=== PATIENT | female | born 1990 | race Caucasian/White ===

== ENCOUNTER 2016-10-01 19:14 | Emergency (ER) | payer OTHER ==
[2016-10-01 19:49] LABS: BILIRUBIN,URINE NEGATIVE (NEGATIVE)
[2016-10-01 19:53] LABS: HCG UR QUAL NEGATIVE; UA CHARGE (STRIP ONLY) YES; UR CULTURE IF IND NOT INDICATED
--- NOTE | 2016-10-01 20:32 | ED Physician Documentation ---
PD HPI ABD PAIN - Stated complaint Stated Complaint: ABD PX - Chief complaint Chief Complaint: Abd Pain - History obtained from History obtained from: Patient - History of Present Illness Timing - onset: Other (25-year-old, 3 months after , no other abdominal surgeries. After eating Guacamole with cheese she developed upper abdominal pain which is now mostly gone but she has had some near syncopal episodes with which concern her more. There is no associated chest pain or shortness of breath.) Timing - details: Abrupt onset Quality: Cramping Review of Systems Constitutional: denies: Fever, Chills Cardiac: denies: Chest pain / pressure, Palpitations Respiratory: denies: Dyspnea, Cough GI: reports: Abdominal Pain (Gone). denies: Constipation, Hematemesis, Bloody / black stool : reports: Control. 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 : None HEENT: None Psych: None Musculoskeletal: None Derm: None - Past Surgical History Past Surgical History: No - Present Medications Home Medications: Ambulatory Orders Medication Instructions Recorded Confirmed Norgestimate-Ethinyl Estradiol 1 tab PO DAILY 01/13/15 01/13/15 [Ortho Tri-Cyclen 28 Tablet] Omeprazole [PriLOSEC] 20 mg PO DAILY #14 capsule 10/01/16 - Allergies Allergies/Adverse Reactions: Allergies Allergy/AdvReac Type Severity Reaction Status Date / Time No Known Drug Allergies Allergy Verified 10/01/16 19:22 - Social History Does the pt smoke?: Yes Smoking Status: Current every day smoker Does the pt drink ETOH?: Yes Does the pt have substance abuse?: No - Immunizations Immunizations: TDAP >10years/unknown PD ED PE NORMAL - Vitals Vital signs reviewed: Yes - General General: Alert and oriented X 3, No acute distress - Cardiac Cardiac: RRR, No murmur - Respiratory Respiratory: No respiratory distress, Clear bilaterally - Abdomen Abdomen: Normal bowel sounds, Soft, Non tender - Derm Derm: Normal color, Warm and dry - Extremities Extremities: No edema, No calf tenderness / cord - Neuro Neuro: Alert and oriented X 3, Normal speech - Psych Psych: Normal mood, Normal affect Results - Vitals Vitals: Vital Signs - 24 hr 10/01/16 10/01/16 19:20 20:37 Temperature 36.2 C L 36.9 C Heart Rate 87 103 H Respiratory 16 11 L Rate Blood Pressure 135/87 H 149/86 H O2 Saturation 98 98 Oxygen O2 Source Room air - Labs Labs: Laboratory Tests 10/01/16 10/01/16 10/01/16 19:33 20:46 20:46 WBC 11.6 H RBC 4.67 Hgb 14.6 Hct 41.7 MCV 89.3 MCH 31.3 H MCHC 35.1 RDW 13.4 Plt Count 240 MPV 9.3 Neut # 8.6 H Lymph # 2.3 Martin # 0.6 Eos # 0.0 Baso # 0.0 Absolute Nucleated RBC 0.01 Nucleated RBCs 0.1 Sodium 137 Potassium 3.9 Chloride 102 Carbon Dioxide 26 Anion Gap 9.0 BUN 8 Creatinine 0.9 Estimated GFR (MDRD) 78 L Glucose 125 H Calcium 9.2 Total Bilirubin 0.3 AST 20 ALT 32 Alkaline Phosphatase 113 Total Protein 8.1 Albumin 4.3 Globulin 3.8 Albumin/Globulin Ratio 1.1 Lipase 14 L Urine Color YELLOW Urine Clarity CLEAR Urine pH 6.0 Ur Specific [place] <=1.005 Urine Protein NEGATIVE Urine Glucose (UA) NEGATIVE Urine Ketones NEGATIVE Urine Occult Blood NEGATIVE Urine Nitrite NEGATIVE Urine Bilirubin NEGATIVE Urine Urobilinogen 0.2 (NORMAL) Ur Leukocyte Esterase NEGATIVE Ur Microscopic Review NOT INDICATED Urine Culture Comments NOT INDICATED Urine HCG, Qual NEGATIVE PD MEDICAL DECISION MAKING - ED course ED course: 25-year-old, 3 months with pain that sounds like gastritis, already resolving but with some near syncopal episodes, no tenderness, no right upper quadrant tenderness or Estes sign. Feeling better already on arrival here and declined medications. Labs were relatively unremarkable and remains nontender on recheck prior to discharge. Departure - Departure Disposition: 01 Home, Self Care Clinical Impression: Abdominal pain Qualifiers: Abdominal location: upper abdomen, unspecified Qualified Code(s): R10.10 - Upper abdominal pain, unspecified Condition: Good Record reviewed to determine appropriate education?: Yes Instructions: ED Abdominal Pain Unkn Cause Prescriptions: Omeprazole [PriLOSEC] 20 mg PO DAILY #14 capsule Comments: Call your doctor to arrange a follow-up appointment, make the next available appointment. In the interim, return anytime if worse or if new symptoms develop. Your blood pressure was elevated today on check into the emergency department. This does not mean that you have hypertension, it is a common phenomenon to come to the emergency department and have elevated blood pressure. I recommend that she see her primary care physician within the week to have it rechecked when you are feeling better.
[2016-10-01 20:38] VITALS: BP 149/86
[2016-10-01 21:23] LABS: BASOPHILS % (AUTO) 0.3 %; EOSINOPHILS % (AUTO) 0.2 %; HCT - HEMATOCRIT 41.7 % (37.0-47.0); HGB - HEMOGLOBIN 14.6 g/dL (12.0-16.0); LYMPHOCYTES # (AUTO) 2.3 10^3/uL (1.5-3.5); LYMPHOCYTES % (AUTO) 19.5 %; MEAN CORPUSCULAR HEMOGLOBIN 31.3 pg (27.0-31.0); MEAN CORPUSCULAR HGB CONC 35.1 g/dL (32.0-36.0); MEAN CORPUSCULAR VOLUME 89.3 fL (81.0-99.0); MEAN PLATELET VOLUME 9.3 fL (7.9-10.8); MONOCYTES # (AUTO) 0.6 10^3/uL (0.0-1.0); MONOCYTES % (AUTO) 5.2 %; NEUTROPHILS # (AUTO) 8.6 10^3/uL (1.5-6.6); NEUTROPHILS % (AUTO) 74.8 %; NUCLEATED RED BLOOD CELLS AUTO 0.1 /100WBC; RED BLOOD COUNT 4.67 10^6/uL (4.20-5.40); RED CELL DISTRIBUTION WIDTH 13.4 % (12.0-15.0); UNCORRECTED WHITE BLOOD COUNT 11.6 x10^3/uL; WHITE BLOOD COUNT 11.6 x10^3/uL (4.8-10.8)
[2016-10-01 21:33] LABS: ALBUMIN/GLOBULIN RATIO 1.1 (1.0-2.2); BILIRUBIN,TOTAL 0.3 mg/dL (0.2-1.0); CALCIUM 9.2 mg/dL (8.5-10.3); CREATININE 0.9 mg/dL (0.4-1.0); POTASSIUM 3.9 mmol/L (3.5-5.0); TOTAL PROTEIN 8.1 g/dL (6.7-8.2)
== END 2016-10-01 21:47 | disposition home or self-care (01) ==
LOC: ED 19:14
DX: R10.10 Upper abdominal pain, unspecified (principal); R03.0 Elevated blood-pressure reading, without diagnosis of hypertension; F17.200 Nicotine dependence, unspecified, uncomplicated
CPT/HCPCS: 36415; 80053; 81001; 81003; 81025; 83690; 85025; 87086; 99283

== ENCOUNTER 2017-08-28 19:38 | Emergency (ER) | payer OTHER ==
[2017-08-28 19:55] VITALS: BP 139/79
== END 2017-08-28 20:10 | disposition left against medical advice (07) ==
LOC: ED 19:38
DX: Z53.21 Procedure and treatment not carried out due to patient leaving prior to being seen by health care provider (principal)

== ENCOUNTER 2018-07-18 16:32 | Emergency (ER) | payer OTHER ==
[2018-07-18 16:39] VITALS: BP 145/88
--- NOTE | 2018-07-18 17:26 | ED Physician Documentation ---
History of Present Illness - Stated complaint Stated Complaint: CHILLS,NAUSEA,TIRED,HEAD PX - Chief complaint Chief Complaint: General - History obtained from History obtained from: Patient - History of Present Illness Timing: How many days ago (4) - Additonal information Additional information: This is a 27-year-old presents with complaints that she just does not feel well. She has some chills and sweats but no fever she is fatigued and has body aches. And then her right ear started hurting with some "pressure" in her head feels kind of foggy. She is been feeling bad for the past 4 days and took some Mucinex to sleep and took some DayQuil which seemed to relieve her symptoms slightly. No sore throat minimal stuffy nose. She is a little bit nauseous but no vomiting. Denies coughing. She did start her menstrual cycle yesterday and she thinks that she is made everything feel worse. She is concerned because she is leaving tomorrow on vacation to [place] and will be flying. Review of Systems Constitutional: denies: Fever Ears: reports: Ear pain Nose: reports: Congestion (Minimal). 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 : None HEENT: None Psych: None Musculoskeletal: None Derm: None - Past Surgical History Past Surgical History: No - Present Medications Home Medications: Ambulatory Orders Medication Instructions Recorded Confirmed No Known Home Medications 07/18/18 07/18/18 - Allergies Allergies/Adverse Reactions: Allergies Allergy/AdvReac Type Severity Reaction Status Date / Time No Known Drug Allergies Allergy Verified 08/28/17 19:55 - Social History Does the pt smoke?: Yes Smoking Status: Current every day smoker Does the pt drink ETOH?: Yes Does the pt have substance abuse?: Yes Substance Use and Type: Marijuana - Immunizations Immunizations are current?: No Immunizations: TDAP >10years/unknown - POLST Patient has POLST: No PD ED PE NORMAL - Vitals Vital signs reviewed: Yes - General General: Alert and oriented X 3, No acute distress, Well developed/nourished - HEENT HEENT: Atraumatic, PERRL, EOMI, Moist mucous membranes, Pharynx benign, Other (Mild retraction of the right TM. No serous fluid and there is a good light reflex. Left is negative.) - Neck Neck: Supple, no meningeal sign, No adenopathy - Cardiac Cardiac: RRR, No murmur - Respiratory Respiratory: No respiratory distress Results - Vitals Vitals: Vital Signs - 24 hr 07/18/18 16:37 Temperature 37.4 C Heart Rate 114 H Respiratory 14 Rate Blood Pressure 145/88 H O2 Saturation 100 Oxygen O2 Source Room air PD MEDICAL DECISION MAKING - ED course Complexity details: d/w patient ED course: Patient's reassured that there is no evidence of a bacterial infection. She does have some TM retraction so have encouraged her to take ibuprofen before getting on the plane, popping her ears if they are hurting and taking Afrin with her to help if needed for decongestant. Departure - Departure Disposition: 01 Home, Self Care Clinical Impression: Viral syndrome, Ear pain, right Condition: Good Instructions: ED Viral Syndrome Follow-Up: doctor, your [Other] Comments: Try to pop your ears to alleviate the pressure. Take ibuprofen before you get on the plane. I would recommend that you carry Afrin nasal spray with you on the plane in case she start getting intense ear pain. If not improving in 10 to 12 days she should be reevaluated. Discharge Date/Time: 07/18/18 17:30
== END 2018-07-18 17:30 | disposition home or self-care (01) ==
LOC: ED 16:32
DX: B34.9 Viral infection, unspecified (principal); H92.01 Otalgia, right ear; H73.891 Other specified disorders of tympanic membrane, right ear; F17.200 Nicotine dependence, unspecified, uncomplicated
CPT/HCPCS: 99282

== ENCOUNTER 2018-08-21 13:04 | Emergency (ER) | payer OTHER ==
--- NOTE | 2018-08-21 13:22 | ED Physician Documentation ---
PD HPI ABD PAIN - Stated complaint Stated Complaint: FEMALE - Chief complaint Chief Complaint: Abd Pain - History obtained from History obtained from: Patient - History of Present Illness Timing - onset: Last night ( with LMP of July 17, just found out she was 3 days ago she has had left flank cramping since last night that radiates to the suprapubic area and right lower quadrant without urinary complaints, increased nausea, trouble with bowel movements or bleeding. 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 : None HEENT: None Psych: None Musculoskeletal: None Derm: None - Past Surgical History Past Surgical History: No - Present Medications Home Medications: Ambulatory Orders Medication Instructions Recorded Confirmed No Known Home Medications 07/18/18 07/18/18 Lab Draw 1 unit TD ONCE #1 08/21/18 - Allergies Allergies/Adverse Reactions: Allergies Allergy/AdvReac Type Severity Reaction Status Date / Time No Known Drug Allergies Allergy Verified 08/21/18 13:11 - Social History Does the pt smoke?: Yes Smoking Status: Current every day smoker Does the pt drink ETOH?: Yes Does the pt have substance abuse?: Yes - Family History Family history: reports: Non contributory - Immunizations Immunizations are current?: No Immunizations: TDAP >10years/unknown - POLST Patient has POLST: No PD ED PE NORMAL - Vitals Vital signs reviewed: Yes - General General: Alert and oriented X 3, No acute distress - HEENT HEENT: PERRL, EOMI - Neck Neck: Supple, no meningeal sign, No bony TTP - Cardiac Cardiac: RRR, No murmur - Respiratory Respiratory: No respiratory distress, Clear bilaterally - Abdomen Abdomen: Normal bowel sounds, Soft, Other (Minimal right flank and right-sided abdominal tenderness without surgical signs) - Back Back: No spinal TTP - Derm Derm: Normal color, Warm and dry - Extremities Extremities: No edema, No calf tenderness / cord - Neuro Neuro: Alert and oriented X 3, Normal speech Results - Vitals Vitals: Vital Signs - 24 hr 08/21/18 08/21/18 08/21/18 13:07 13:42 17:09 Temperature 36.7 C 97.9 C H Heart Rate 108 H 97 98 Respiratory 19 17 18 Rate Blood Pressure 125/91 H 125/79 138/86 H O2 Saturation 98 99 100 Oxygen O2 Source Room air - Labs Labs: Laboratory Tests 08/21/18 08/21/18 08/21/18 13:20 13:24 13:24 WBC 10.9 H RBC 4.86 Hgb 14.8 Hct 43.9 MCV 90.3 MCH 30.5 MCHC 33.7 RDW 12.4 Plt Count 322 MPV 9.5 Neut # (Auto) 6.6 Lymph # (Auto) 3.4 [place] # (Auto) 0.7 Eos # (Auto) 0.1 Baso # (Auto) 0.1 Absolute Nucleated RBC 0.00 Nucleated RBC % 0.0 Sodium Potassium Chloride Carbon Dioxide Anion Gap BUN Creatinine Estimated GFR (MDRD) Glucose Calcium Total Bilirubin AST ALT Alkaline Phosphatase Total Protein Albumin Globulin Albumin/Globulin Ratio Lipase HCG, Quant Urine Color YELLOW Urine Clarity CLEAR Urine pH 6.0 Ur Specific [place] 1.020 Urine Protein NEGATIVE Urine Glucose (UA) NEGATIVE Urine Ketones NEGATIVE Urine Occult Blood TRACE-INTA Urine Nitrite POSITIVE H Urine Bilirubin NEGATIVE Urine Urobilinogen 0.2 (NORMAL) Ur Leukocyte Esterase NEGATIVE Urine RBC 0-5 Urine WBC 0-3 Ur Squamous Epith Cells FEW Squamous Urine Bacteria Moderate H Ur Microscopic Review INDICATED Urine Culture Comments INDICATED Blood Type O POSITIVE 08/21/18 08/21/18 13:24 13:24 WBC RBC Hgb Hct MCV MCH MCHC RDW Plt Count MPV Neut # (Auto) Lymph # (Auto) [place] # (Auto) Eos # (Auto) Baso # (Auto) Absolute Nucleated RBC Nucleated RBC % Sodium 139 Potassium 3.9 Chloride 104 Carbon Dioxide 23 Anion Gap 12.0 BUN 10 Creatinine 0.7 Estimated GFR (MDRD) 102 Glucose 102 H Calcium 9.6 Total Bilirubin 0.5 AST 11 ALT < 10 L Alkaline Phosphatase 74 Total Protein 8.2 Albumin 4.5 Globulin 3.7 Albumin/Globulin Ratio 1.2 Lipase 24 HCG, Quant 2043.00 Urine Color Urine Clarity Urine pH Ur Specific [place] Urine Protein Urine Glucose (UA) Urine Ketones Urine Occult Blood Urine Nitrite Urine Bilirubin Urine Urobilinogen Ur Leukocyte Esterase Urine RBC Urine WBC Ur Squamous Epith Cells Urine Bacteria Ur Microscopic Review Urine Culture Comments Blood Type - Rads (name of study) Pelvic sono Radiology: Discussed with rads (1.2 cm right adnexal structure with cystic appearance concerning for adnexal ectopic .) PD MEDICAL DECISION MAKING - ED course ED course: 27-year-old woman with right-sided back and abdominal cramping. She is a G2 in early . Beta-hCG 2052 and ultrasound as shown. Call to Dr. Franco, the on-call personal development mentor at 4:30 PM regarding the findings. She wanted me to call her back after the formal read was dictated and this was done at 4:55 PM and she will come in and see the patient. Dr. Franco saw the patient. Given the small size she had a discussion with the patient about options for treatment, the plan at this juncture is for the patient to follow-up on Thursday for repeat labs at which point she will talk with the personal development mentor to arrange follow-up. Patient understands to return anytime for worsening pain or heavy bleeding. Departure - Departure Disposition: Home, Self Care Clinical Impression: Ectopic Qualifiers: Location of ectopic : ovarian Intrauterine status: without intrauterine Laterality: right Qualified Code(s): O00.201 - Right ovarian without intrauterine Condition: Good Record reviewed to determine appropriate education?: Yes Health Concerns: as above Plan of Treatment: cmp and hcg on Thursday, to call Dr Franco after that Prescriptions: Lab Draw 1 unit TD ONCE #1 Comments: Return anytime if pain is worse or uncontrolled with Tylenol. Or for heavy bleeding. Contact Dr. Franco about a hour or 2 after your labs are drawn on Thursday morning.
[2018-08-21 13:31] LABS: BILIRUBIN,URINE NEGATIVE (NEGATIVE); GLUCOSE, URINE (UA) NEGATIVE (NEGATIVE); KETONES,URINE (UA) NEGATIVE (NEGATIVE); LEUKOCYTE ESTERASE, URINE NEGATIVE (NEGATIVE); NITRITE,URINE POSITIVE (NEGATIVE); OCCULT BLOOD,URINE TRACE-INTA (NEGATIVE); PROTEIN,URINE NEGATIVE (NEGATIVE); UROBILINOGEN,URINE 0.2 (NORMAL) E.U./dL (NORMAL)
[2018-08-21 13:31] LABS: BASOPHILS # (AUTO) 0.1 10^3/uL (0.0-0.1); BASOPHILS % (AUTO) 0.5 %; EOSINOPHILS # (AUTO) 0.1 10^3/uL (0.0-0.7); EOSINOPHILS % (AUTO) 0.9 %; HGB - HEMOGLOBIN 14.8 g/dL (12.0-16.0); LYMPHOCYTES # (AUTO) 3.4 10^3/uL (1.5-3.5); LYMPHOCYTES % (AUTO) 31.4 %; MEAN CORPUSCULAR HEMOGLOBIN 30.5 pg (27.0-31.0); MEAN CORPUSCULAR HGB CONC 33.7 g/dL (32.0-36.0); MEAN CORPUSCULAR VOLUME 90.3 fL (81.0-99.0); MEAN PLATELET VOLUME 9.5 fL (7.9-10.8); MONOCYTES # (AUTO) 0.7 10^3/uL (0.0-1.0); NEUTROPHILS # (AUTO) 6.6 10^3/uL (1.5-6.6); NEUTROPHILS % (AUTO) 60.7 %; PLT - PLATELET COUNT 322 10^3/uL (130-450); RED BLOOD COUNT 4.86 10^6/uL (4.20-5.40); RED CELL DISTRIBUTION WIDTH 12.4 % (12.0-15.0); WHITE BLOOD COUNT 10.9 x10^3/uL (4.8-10.8)
[2018-08-21 13:38] LABS: CLARITY,URINE CLEAR (CLEAR)
[2018-08-21 13:46] LABS: ALBUMIN 4.5 g/dL (3.2-5.5); ALBUMIN/GLOBULIN RATIO 1.2 (1.0-2.2); ALKALINE PHOSPHATASE 74 IU/L (42-121); ALT ALANINE AMINOTRANSFERASE < 10 IU/L (10-60); AST ASPARTATE AMINOTRANSFERASE 11 IU/L (10-42); BILIRUBIN,TOTAL 0.5 mg/dL (0.2-1.0); BUN - BLOOD UREA NITROGEN 10 mg/dL (6-20); CALCIUM 9.6 mg/dL (8.5-10.3); CARBON DIOXIDE - CO2 23 mmol/L (21-32); CHLORIDE 104 mmol/L (101-111); CREATININE 0.7 mg/dL (0.4-1.0); GFR - MDRD 102 (>89); GLUCOSE 102 mg/dL (70-100); LIPASE 24 U/L (22-51); SODIUM 139 mmol/L (135-145); TOTAL PROTEIN 8.2 g/dL (6.7-8.2)
[2018-08-21 13:48] LABS: BACTERIA,URINE Moderate /HPF (None Seen); RBC,URINE 0-5 /HPF (0-5); SQUAMOUS EPITHELIAL CELL,UR FEW Squamous (<= Few)
--- NOTE | 2018-08-21 16:47 | Ultrasound Report ---
Reason: RLQ pain in Procedure Date: 08/21/2018 Accession Number: [id number] / [id number] Procedure: US - OB First Trimester CPT Code: FULL RESULT: EXAM: FIRST TRIMESTER OBSTETRIC ULTRASOUND (Less than 11 weeks) EXAM DATE: 08/21/2018 03:14 PM. CLINICAL HISTORY: , right lower quadrant pain. HCG 2043. LMP: 07/17/2018. COMPARISONS: None this . TECHNIQUE: Transabdominal and transvaginal ultrasound examination with static image documentation. CLINICAL DATES: EGA 5 weeks with SKY 04/23/2019 based on LMP. ASSESSMENT: There is no intrauterine gestation. Uterus is otherwise unremarkable. There is a 1.2 x 1.2 cm mass in the right adnexa, immediately adjacent to the right ovary. This has sac-like structure, best visible on cine clips. Findings are highly suspicious for an ectopic. The right ovary is otherwise unremarkable. It measures 3.4 x 2.5 x 3 cm, ovarian volume 13.1 cc. It contains a 2.5 x 1.6 x 2 cm simple cyst. The left ovary measures 3.3 x 2.9 x 2 cm and contains the corpus luteum. No free fluid in the adnexa or pelvic cul-de-sac. IMPRESSION: 1.2 cm mass in the right adnexa with a saclike structure, highly suspicious for a tubal ectopic. No intrauterine gestation. CRITICAL RESULT: The findings were discussed with Dr. Carney on 08/21/2018 at 4:36 p.m. MIRIAN
--- NOTE | 2018-08-21 18:04 | CONSULTATION NOTE ---
Referring Provider Name of Referring Provider:: Dr. Carney Consult Date: 08/21/18 (ED Consult) Chief Complaint - Chief Complaint Chief Complaint: 27 yo at 5w0d here with concern for possible ectopic History of Present Illness - History Obtained From History obtained from: patient - History of Present Illness HPI Comment/Other: CC: Ms Morales is a 27 yo at 5w0d based on LMP of 07/17/18 here with abdomin al pain with an early of unknown origin suspicious for ectopic. HPI: She had pain in her abdomen this morning rated 4-6/10. No discomfort at present. No VB. Positive test within the last week. No nausea/vomiting. Desired . Prior for suspected macrosomia in the setting of GDM and mild preeclampsia. Otherwise healthy and no hx of STIs. PMH: GDM PSH: OBHX: Prior in complicated by GDM and mild preeclampsia. Regular menses. 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 Exam - Vital Signs Vital Signs: Vital Signs x48h Temp Pulse Resp BP Pulse Ox 08/21/18 17:09 98 18 138/86 H 100 08/21/18 13:42 208.2 F H 97 17 125/79 99 08/21/18 13:07 98.1 F 108 H 19 125/91 H 98 - Physical Exam General Appearance: positive: No acute distress Respiratory: positive: No respiratory distress Cardiovascular: positive: Other (RR) Abdomen: positive: Non-tender, No distention Extremities: positive: Non-tender, Nml appearance Neurologic/Psychiatric: positive: Oriented x3 Comments/Other: PELVIC: Normal appearing external genitalia. BME reveals small, mobile uterus with no tenderness. No adnexal masses or tenderness. Exam glove shows a small amount of dark blood. HCG 2043 PELVIC US: Reviewed images. No clear IUP. EMS thickened. Right ovary with small mass about 1.2 cm in greatest dimension and unclear presence of possible yolk sac. No pole. No obvious vascular flow to area of concern. Conclusion/Plan - Diagnosis Diagnosis: of unknown origin, concerning for possible ectopic - Plan Plan: Reviewed concern for ectopic with patient and her partner. -Desired -Reviewed interpretation of HCG levels and interpretation of pelvic us. Situat ion is unclear at this HCG level and non-specific imaging. -Discussed that at an HCG of 3500 or presence of certain findings on US, we could be more clear on the diagnosis but situation is unclear at present. -Management of early ectopic includes administration of methotrexate and surgery can be avoided. -Methotrexate will also terminate a viable intrauterine -If cystic mass increases significantly in size, pole develops visible cardiac activity, or in the setting of active rupture, surgery cannot be avoided -They live near to the hospital and see no barriers to follow-up should we opt to trend HCG levels over the next 2-3 days. -CMP wnl -Rh positive. Patient and partner to discuss and decide plan of action based on options presented. Orlin and her partner have opted to trend HCGs. -Will follow up beta HCG and send LFTs after 1 pm on Thursday. -Minimum expected increase would be 2758. -Warning signs reviewed Patient contact information: [phone] Thank you for inviting me into the care of this patient. Total time spent with patient 60 minutes, including review of image/labs and more than 50% was spent in face to face head counselor. - Lab Results Fish Bones: 08/21/18 13:24 08/21/18 13:24 - Diagnostic Imaging Results Diagnostic Imaging Results: positive: Final report reviewed, Read independently Diagnostic Imaging Results Comments: See above
[2018-08-21 18:47] VITALS: BP 118/79
== END 2018-08-21 18:45 | disposition home or self-care (01) ==
LOC: ED 13:04
DX: O34.81 Maternal care for other abnormalities of pelvic organs, first trimester (principal); N83.201 Unspecified ovarian cyst, right side; O99.331 Smoking (tobacco) complicating pregnancy, first trimester; Z3A.00 Weeks of gestation of pregnancy not specified
CPT/HCPCS: 36415; 76801; 76817; 80053; 81001; 81003; 83690; 84702; 85025; 86900; 86901; 87077; 87086; 87181; 99283

== ENCOUNTER 2018-08-22 05:43 | Emergency (ER) | payer OTHER ==
[2018-08-22 06:10] LABS: BASOPHILS # (AUTO) 0.1 10^3/uL (0.0-0.1); BASOPHILS % (AUTO) 0.4 %; EOSINOPHILS % (AUTO) 0.3 %; HGB - HEMOGLOBIN 14.7 g/dL (12.0-16.0); LYMPHOCYTES # (AUTO) 3.7 10^3/uL (1.5-3.5); LYMPHOCYTES % (AUTO) 23.8 %; MEAN CORPUSCULAR HEMOGLOBIN 30.6 pg (27.0-31.0); MEAN CORPUSCULAR HGB CONC 33.9 g/dL (32.0-36.0); MEAN CORPUSCULAR VOLUME 90.4 fL (81.0-99.0); MEAN PLATELET VOLUME 9.7 fL (7.9-10.8); MONOCYTES # (AUTO) 0.7 10^3/uL (0.0-1.0); MONOCYTES % (AUTO) 4.3 %; NEUTROPHILS # (AUTO) 10.9 10^3/uL (1.5-6.6); NEUTROPHILS % (AUTO) 70.2 %; PLT - PLATELET COUNT 334 10^3/uL (130-450); RED CELL DISTRIBUTION WIDTH 12.3 % (12.0-15.0); WHITE BLOOD COUNT 15.5 x10^3/uL (4.8-10.8)
[2018-08-22 06:20] LABS: ALBUMIN 4.5 g/dL (3.2-5.5); ALBUMIN/GLOBULIN RATIO 1.2 (1.0-2.2); BILIRUBIN,TOTAL 0.4 mg/dL (0.2-1.0); CALCIUM 9.5 mg/dL (8.5-10.3); CREATININE 0.7 mg/dL (0.4-1.0); TOTAL PROTEIN 8.2 g/dL (6.7-8.2)
--- NOTE | 2018-08-22 06:55 | ED Physician Documentation ---
PD HPI FEMALE - Stated complaint Stated Complaint: FEM / - Chief complaint Chief Complaint: Abd Pain - History obtained from History obtained from: Patient - History of Present Illness Timing - duration: Days Timing - details: Gradual onset, Still present (increased pain RLQ overnight and noted some mild vaginal bleeding (just 1-2 pads).) Associated symptoms: Pelvic pain (right side) Contributing factors: (early , with U/S showing concern for ectopic on right yesterday. Seen by BOOKMOBILE CLERK and was going to repeat quant in 2 days.). 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 denies: Nausea, Vomiting PD PAST MEDICAL HISTORY - Past Medical History Past Medical History: No Cardiovascular: None Respiratory: None Endocrine/Autoimmune: None GI: None BOOKMOBILE CLERK: None : None HEENT: None Psych: None Musculoskeletal: None Derm: None - Past Surgical History Past Surgical History: No - Present Medications Home Medications: Ambulatory Orders Medication Instructions Recorded Confirmed Lab Draw 1 unit TD ONCE #1 08/21/18 Hydrocodone/Acetaminophen [[place] 1 each PO Q6H PRN #15 tablet 08/22/18 5-325 Tablet] Ondansetron Odt [Zofran] 4 mg TL Q6H PRN #10 tablet 08/22/18 - Allergies Allergies/Adverse Reactions: Allergies Allergy/AdvReac Type Severity Reaction Status Date / Time No Known Drug Allergies Allergy Verified 08/22/18 05:51 - Social History Does the pt smoke?: Yes Smoking Status: Current every day smoker Does the pt drink ETOH?: Yes Does the pt have substance abuse?: Yes - Immunizations Immunizations are current?: No Immunizations: TDAP >10years/unknown - POLST Patient has POLST: No PD ED PE NORMAL - Vitals Vital signs reviewed: Yes - General General: Alert and oriented X 3, Well developed/nourished, Other (tearful and anxious) - Cardiac Cardiac: RRR, No murmur - Respiratory Respiratory: Clear bilaterally - Abdomen Abdomen: Soft, Non distended, No organomegaly, Other (tender RLQ and suprapubic without guarding nor percussion tenderness. No rebound. ) - Female Female : Deferred - Back Back: No CVA TTP - Derm Derm: Normal color, Warm and dry Results - Vitals Vitals: Vital Signs - 24 hr 08/22/18 08/22/18 08/22/18 05:45 06:13 06:40 Temperature 36.6 C Heart Rate 124 H 104 H 108 H Respiratory 18 18 16 Rate Blood Pressure 138/89 H 143/102 H 129/80 O2 Saturation 99 100 99 08/22/18 08/22/18 08/22/18 08:37 09:12 10:17 Temperature Heart Rate 86 92 Respiratory 16 18 18 Rate Blood Pressure 129/92 H 127/77 122/75 O2 Saturation 97 99 99 Oxygen O2 Source Room air - Labs Labs: Laboratory Tests 08/22/18 08/22/18 08/22/18 06:00 06:00 06:00 WBC 15.5 H RBC 4.80 Hgb 14.7 Hct 43.4 MCV 90.4 MCH 30.6 MCHC 33.9 RDW 12.3 Plt Count 334 MPV 9.7 Neut # (Auto) 10.9 H Lymph # (Auto) 3.7 H [place] # (Auto) 0.7 Eos # (Auto) 0.0 Baso # (Auto) 0.1 Absolute Nucleated RBC 0.00 Nucleated RBC % 0.0 Sodium 138 Potassium 3.7 Chloride 102 Carbon Dioxide 22 Anion Gap 14.0 H BUN 9 Creatinine 0.7 Estimated GFR (MDRD) 102 Glucose 130 H Calcium 9.5 Total Bilirubin 0.4 AST 15 ALT 10 Alkaline Phosphatase 83 Total Protein 8.2 Albumin 4.5 Globulin 3.7 Albumin/Globulin Ratio 1.2 Lipase 23 HCG, Quant 1860.00 - Rads (name of study) limited pelvic U/S Radiology: Prelim report reviewed, Discussed with rads (Again seen is the cyst like structure in the right adnexal area concerning for ectopic. There is a small amount of free fluid.), See rad report PD MEDICAL DECISION MAKING - ED course Complexity details: reviewed results (There is still the mass noted on the right adnexa concerning for ectopic. There is no heartbeat seen. There is a small amount of free fluid new from yesterday.), considered differential, d/w patient, d/w webmethods consultant (BOOKMOBILE CLERK came to ER and saw patient again. Refer to her note. ) Departure - Departure Disposition: 01 Home, Self Care Clinical Impression: Ectopic , Abdominal pain Condition: Stable Record reviewed to determine appropriate education?: Yes Instructions: ED Preg Ectopic Methotrexate Tx Follow-Up: Holly De León MD [Provider Admit Priv/Credential] - Prescriptions: Hydrocodone/Acetaminophen [[place] 5-325 Tablet] 1 each PO Q6H PRN #15 tablet PRN Reason: Pain Ondansetron Odt [Zofran] 4 mg TL Q6H PRN #10 tablet PRN Reason: Nausea / Vomiting Comments: Follow-up with your nurse anesthesia program director this coming week as planned. Return if increasing pain bleeding fevers or lightheadedness. Discharge Date/Time: 08/22/18 10:21
[2018-08-22] MEDS ORDERED: SODIUM CHLORIDE 0.9% 1,000 ML IV ONE (07:05)
[2018-08-22] MEDS ORDERED: METHOTREXATE 50 MG/2 ML MDV IM SCH (07:21)
[2018-08-22] MEDS: MORPHINE 10 MG/ML VIAL IVP STA ×2 (07:29→07:30)
[2018-08-22] MEDS ORDERED: MORPHINE 2 MG/ML CARPUJECT IVP STA (08:37)
[2018-08-22] MEDS ORDERED: KETOROLAC 15 MG/ML VIAL IVP STA (08:37)
--- NOTE | 2018-08-22 08:45 | Ultrasound Report ---
Reason: increased pain, likely tubal preg Procedure Date: 08/22/2018 Accession Number: [id number] / [id number] Procedure: US - OB First Trimester CPT Code: FULL RESULT: EXAM: FIRST TRIMESTER OBSTETRIC ULTRASOUND (Less than 11 weeks) EXAM DATE: 08/22/2018 08:26 AM. CLINICAL HISTORY: Increased pain, likely tubal preg. LMP: Unknown. COMPARISONS: OB FIRST TRIMESTER 08/21/2018 2:41 PM. TECHNIQUE: Transabdominal and transvaginal ultrasound examination with static image documentation. CLINICAL DATES: EGA 5 weeks 1 day with SKY 04/23/2019 based on LMP. ASSESSMENT: No intrauterine seen MATERNAL STRUCTURES: Uterus: Anteverted, retroflexed. Unremarkable. Cervix: Closed. Right Ovary/Adnexa: The ovary measures 3.7 x 2.8 x 3.0 cm, volume 16.3 cc. Solid and cystic structure in or adjacent to the right ovary measuring 1.3 x 1.3 x 1.2 cm, with peripheral color signal/vascularity, with possible adjacent hydrosalpinx. Possible corpus luteum measuring 2.5 x 1.7 x 2.2 cm. Left Ovary/Adnexa: The ovary measures 3.2 x 2.4 x 3.0 cm, volume 11.6 cc. Possible corpus luteum or dominant follicle measuring 1.6 x 1.8 x 2.0 cm. Free Fluid: Small amount of free fluid in the cul-de-sac.. Other: None. IMPRESSION: 1. No intrauterine . Solid or cystic structure along the edge of the right ovary with possible small adjacent hydrosalpinx. Suspicious for ectopic . 2. Small amount of free fluid in the cul-de-sac RADIA The call report notification system was initiated by Dr. Mehrdad Thibodeaux at 08:41 AM on 08/22/2018. ADDENDUM: 08/22/18 08:46 The above call report findings were discussed with Eugenio Tripp by Dr. Mehrdad Thibodeaux at 08:46 AM on 08/22/2018.
--- NOTE | 2018-08-22 10:15 | CONSULTATION NOTE ---
Referring Provider Name of Referring Provider:: Qasim Consult Date: 08/22/18 Chief Complaint - Chief Complaint Chief Complaint: Orlin is a 27 yo at 5w1d by LMP with likely ectopic History of Present Illness - Admitted From Admitted From:: Seen in ER - History Obtained From Records Reviewed: from [facility] History obtained from: Patient - History of Present Illness HPI Comment/Other: Orlin was seen on 08/21/18 pm for abdominal pain and suspected ectopic . HCG was 2043 and US showed possble ectopic on the right adnexa. Trammell had been waxing and waning and her exam was benign. She had opted to trend HCGs as ths was a desred , her clinical presentation was benign, and the us/HCG levels were not definitive. She had not had any bleeding other than that noted on examiner's glove on the 08/21/18 exam. She had passage of small amount of brown blood overnight. Pain continued overnight and became more intense. She had been in communication with the OB provider overnight and they recommended that she come in for further assessment. At current she rates trammell 6/10, down from 8/10. She has had some pain medication. No VB at current. History - Past Medical History Cardiovascular: reports: None Respiratory: reports: None Endocrine/Autoimmune: reports: None GI: reports: None STRUCTURAL WELDER: reports: None : reports: None HEENT: reports: None Psych: reports: None Musculoskeletal: reports: None Derm: reports: None MRSA Hx?: No - POLST Patient has POLST: No Meds/Allgy - Home Medications Home Medications: Ambulatory Orders Medication Instructions Recorded Confirmed Lab Draw 1 unit TD ONCE #1 08/21/18 Hydrocodone/Acetaminophen [[place] 1 each PO Q6H PRN #15 tablet 08/22/18 5-325 Tablet] Ondansetron Odt [Zofran] 4 mg TL Q6H PRN #10 tablet 08/22/18 - Allergies Allergies/Adverse Reactions: Allergies Allergy/AdvReac Type Severity Reaction Status Date / Time No Known Drug Allergies Allergy Verified 08/22/18 05:51 Review of Systems - Other Findings Other Findings: As per HPI, otherwise remaining systems are negative. Exam - Vital Signs Vital Signs: Vital Signs x48h Temp Pulse Resp BP Pulse Ox 08/22/18 09:12 92 18 127/77 99 08/22/18 08:37 86 16 129/92 H 97 08/22/18 06:40 108 H 16 129/80 99 08/22/18 06:13 104 H 18 143/102 H 100 08/22/18 05:45 97.9 F 124 H 18 138/89 H 99 - Physical Exam General Appearance: positive: No acute distress Neck: positive: Nml inspection Respiratory: positive: No respiratory distress Cardiovascular: positive: Other (RR) Abdomen: positive: Non-tender, No distention Extremities: positive: Non-tender, No pedal edema Neurologic/Psychiatric: positive: Oriented x3, Other (Anxious) Conclusion/Plan - Diagnosis Diagnosis: Ectopic - early - Plan Plan: Repeat US showed similar findings to 08/21/18. No cardiac activity, ectopic less than 5 cm in greatest dimension, minimal free fluid. HCT remained relatively unchanged from 08/21/18 HCG dropped from 2042 to 1859, suggestive of a failing , regardless of location. Options had been discussed in detail on 08/21/18 and Orlin is ready to move forward with treatment. Continues to meet criteria for methotrexate. Dosage is 50 mg/m^2, based on BSA. This calculates to 92 mg IM, to be given in divided doses. -Renal and liver function confirmed to be wnl -MTHX administered without complicaton and was well tolerated Orlin was counseled to avoid folate supplementation for the next few weeks. Lab orders for repeat HCG on Day 4 and Day 7 were provided. We reviewed that an increase in HCG on Day 4 is expected and not a cause for concern. We will trend HCG levels weekly until return to normal. Cleared for discharge from OBGYN perspective. Will FU as outpatient at [facility] when FU HCG available. Thank you for inviting me into the care of this patient. A total of 60 minutes was spent in the review of imaging and labs, coordination of care, and direct patient care. - Lab Results Fish Bones: 08/22/18 06:00 08/22/18 06:00
[2018-08-22 10:18] VITALS: BP 122/75
== END 2018-08-22 10:21 | disposition home or self-care (01) ==
LOC: ED 05:43
DX: O00.91 Unspecified ectopic pregnancy with intrauterine pregnancy (principal); O26.891 Other specified pregnancy related conditions, first trimester; R10.31 Right lower quadrant pain; O99.331 Smoking (tobacco) complicating pregnancy, first trimester; Z3A.01 Less than 8 weeks gestation of pregnancy
CPT/HCPCS: 76801; 76817; 80053; 83690; 84702; 85025; 96361; 96372; 96374; 96376; 99283; 99285; J9250

== ENCOUNTER 2018-08-26 13:20 | Outpatient (CLI) | payer OTHER | END 2018-08-26 13:21 | disposition home or self-care (01) | LOC: LAB 13:20 | PROVIDERS: ATTEND Obstetrics & Gynecology | DX: O00.91 Unspecified ectopic pregnancy with intrauterine pregnancy (principal) | CPT/HCPCS: 36415; 84702 ==

== ENCOUNTER 2018-08-28 21:09 | Emergency (ER) | payer OTHER ==
--- NOTE | 2018-08-28 21:41 | ED Physician Documentation ---
PD HPI FEMALE - Stated complaint Stated Complaint: FEM - Chief complaint Chief Complaint: Abd Pain - History obtained from History obtained from: Patient - History of Present Illness Timing - onset: How many weeks ago (1) Timing - duration: Weeks (1) Pain level max: 1 Associated symptoms: Abdominal pain, Vaginal bleeding Contributing factors: Other (Patient was given methotrexate to complete a spontaneous 6 days ago.) OB-GARBAGE MAN History: G (2), P (1), Miscarriage(s) (1), Prior vag delivery Recently seen: Emergency Dept - Additional information Additional information: This is a 27-year-old presents with her complains that she was diagnosed with a possible ectopic last Thursday. She had a repeat hCG done the following day and the levels had dropped so she was given methotrexate to complete an incomplete . She said on Thursday and Thursday she was having a lot of abdominal pain with minimal vaginal bleeding and by the abdominal pain had resolved. Yesterday she felt fine and then today she started to get some suprapubic cramping. She had some increase in the bleeding over the past 2 days. She did have a repeat hCG done on and it was also dropping. She is felt a little lightheaded but has not passed out. To complicate matters the patient has been constipated and decided to take a laxative today she wonders if some of the symptoms could be related to that. She did have a bowel movement today. She had been prescribed hydrocodone for the pain but she ran out yesterday so she took some Tylenol that relieved the pain today. She describes it as a "soreness". She was O+. She is 2 para 1. Review of Systems Constitutional: denies: Fever GI: reports: Abdominal Pain : reports: Vaginal bleeding Neurologic: denies: Syncope, LOC PD PAST MEDICAL HISTORY - Past Medical History Cardiovascular: None Respiratory: None Endocrine/Autoimmune: None GI: None GARBAGE MAN: None : None HEENT: None Psych: None Musculoskeletal: None Derm: None - Past Surgical History Past Surgical History: No - Present Medications Home Medications: Ambulatory Orders Medication Instructions Recorded Confirmed Lab Draw 1 unit TD ONCE #1 08/21/18 Hydrocodone/Acetaminophen [[place] 1 each PO Q6H PRN #15 tablet 08/22/18 5-325 Tablet] Ondansetron Odt [Zofran] 4 mg TL Q6H PRN #10 tablet 08/22/18 - Allergies Allergies/Adverse Reactions: Allergies Allergy/AdvReac Type Severity Reaction Status Date / Time No Known Drug Allergies Allergy Verified 08/28/18 21:28 - Social History Does the pt smoke?: Yes Smoking Status: Current every day smoker Does the pt drink ETOH?: Yes Does the pt have substance abuse?: Yes - Immunizations Immunizations are current?: No Immunizations: TDAP >10years/unknown - POLST Patient has POLST: No PD ED PE NORMAL - Vitals Vital signs reviewed: Yes - General General: Alert and oriented X 3, No acute distress, Well developed/nourished - HEENT HEENT: Atraumatic - Cardiac Cardiac: RRR, No murmur - Respiratory Respiratory: No respiratory distress - Abdomen Abdomen: Normal bowel sounds, Soft, Non tender, Non distended - Derm Derm: Normal color, Warm and dry - Neuro Neuro: Alert and oriented X 3, dragsaw operator 2-12 intact, Normal speech, Other (No obvious neurological deficits.) - Psych Psych: Normal mood, Normal affect PD ED PE EXPANDED - Female Female : Vaginal Bleeding, Tissue present (There was tissue in the vaginal vault. The cervix was closed and there was no tissue in it. That specimen was collected and sent for pathology.), Sports Book Board Attendant present. No: Vaginal Discharge, Enlarged uterus Results - Vitals Vitals: Vital Signs - 24 hr 08/28/18 08/29/18 21:22 00:02 Temperature 36.5 C 36.3 C L Heart Rate 114 H 81 Respiratory 18 17 Rate Blood Pressure 142/99 H 123/83 H O2 Saturation 92 100 Oxygen O2 Source Room air - Labs Labs: Laboratory Tests 08/28/18 08/28/18 08/28/18 21:58 21:58 22:45 WBC 10.3 RBC 4.34 Hgb 12.7 Hct 39.4 MCV 90.8 MCH 29.3 MCHC 32.2 RDW 12.5 Plt Count 214 MPV 10.1 Neut # (Auto) 8.1 H Lymph # (Auto) 1.6 [place] # (Auto) 0.5 Eos # (Auto) 0.0 Baso # (Auto) 0.0 Absolute Nucleated RBC 0.00 Nucleated RBC % 0.0 HCG, Quant 480.21 Urine Color DARK YELLOW Urine Clarity HAZY Urine pH 6.5 Ur Specific [place] 1.020 Urine Protein 30 H Urine Glucose (UA) NEGATIVE Urine Ketones 15 H Urine Occult Blood LARGE H Urine Nitrite NEGATIVE Urine Bilirubin NEGATIVE Urine Urobilinogen 2 H Ur Leukocyte Esterase TRACE H Urine RBC 11-25 H Urine WBC 4-5 Ur Squamous Epith Cells FEW Squamous Urine Bacteria Rare Urine Mucus Marked Strands Ur Microscopic Review INDICATED Urine Culture Comments INDICATED PD MEDICAL DECISION MAKING - ED course Complexity details: reviewed old records (Patient's blood type was confirmed O+ in the lab. Her quantitative hCG is down to 480 and she did have products of conception in the vaginal vault. These were collected and sent to pathology. She is already on antibiotics for urinary tract infection. The urine will be recultured but I am not to change her antibiotic at this point. She is instructed to drink lots of water. Of encouraged her to contact Dr. De León on Thursday about when they will would like to reevaluate her and whether they need a repeat hCG. She states understanding.), reviewed results, d/w patient, d/w family Departure - Departure Disposition: 01 Home, Self Care Clinical Impression: Spontaneous Condition: Good Instructions: ED Miscarriage Completed Follow-Up: MAYKEL DE LEÓN MD, PHD [Physician No Access] - Comments: You can expect some more vaginal bleeding and cramping. You do not need to return tomorrow to have the quantitative hCG rechecked but you should contact Dr. De León's office on Thursday about it if and when they would write a repeat. You can take ibuprofen if needed for the pain 3 to 4 tablets every 8 hours with food. You do still have some white blood cells in the urine although Macrobid was the appropriate antibiotic for the previous culture. Continue taking the Macrobid. The urine has been recultured. Make sure that you are drinking plenty of water. Discharge Date/Time: 08/29/18 00:04
[2018-08-28 22:14] LABS: BASOPHILS % (AUTO) 0.3 %; EOSINOPHILS % (AUTO) 0.2 %; HGB - HEMOGLOBIN 12.7 g/dL (12.0-16.0); LYMPHOCYTES # (AUTO) 1.6 10^3/uL (1.5-3.5); LYMPHOCYTES % (AUTO) 15.5 %; MEAN CORPUSCULAR HEMOGLOBIN 29.3 pg (27.0-31.0); MEAN CORPUSCULAR HGB CONC 32.2 g/dL (32.0-36.0); MEAN CORPUSCULAR VOLUME 90.8 fL (81.0-99.0); MEAN PLATELET VOLUME 10.1 fL (7.9-10.8); MONOCYTES # (AUTO) 0.5 10^3/uL (0.0-1.0); MONOCYTES % (AUTO) 5.1 %; NEUTROPHILS # (AUTO) 8.1 10^3/uL (1.5-6.6); NEUTROPHILS % (AUTO) 78.5 %; PLT - PLATELET COUNT 214 10^3/uL (130-450); RED BLOOD COUNT 4.34 10^6/uL (4.20-5.40); RED CELL DISTRIBUTION WIDTH 12.5 % (12.0-15.0); WHITE BLOOD COUNT 10.3 x10^3/uL (4.8-10.8)
[2018-08-28 22:53] LABS: GLUCOSE, URINE (UA) NEGATIVE (NEGATIVE); KETONES,URINE (UA) 15 mg/dL (NEGATIVE); LEUKOCYTE ESTERASE, URINE TRACE (NEGATIVE); NITRITE,URINE NEGATIVE (NEGATIVE); OCCULT BLOOD,URINE LARGE (NEGATIVE); PH,URINE 6.5 PH (5.0-7.5); PROTEIN,URINE 30 mg/dL (NEGATIVE); UROBILINOGEN,URINE 2 E.U./dL (NORMAL)
[2018-08-28 23:03] LABS: BILIRUBIN,URINE NEGATIVE (NEGATIVE); CLARITY,URINE HAZY (CLEAR); ICTOTEST,URINE NEGATIVE
[2018-08-28 23:09] LABS: BACTERIA,URINE Rare /HPF (None Seen); MUCUS,URINE Marked Strands; SQUAMOUS EPITHELIAL CELL,UR FEW Squamous (<= Few)
[2018-08-29 00:04] VITALS: BP 123/83
== END 2018-08-29 00:04 | disposition home or self-care (01) ==
LOC: ED 21:09
DX: O03.88 Urinary tract infection following complete or unspecified spontaneous abortion (principal); F17.200 Nicotine dependence, unspecified, uncomplicated
CPT/HCPCS: 36415; 81001; 81003; 84702; 85025; 87077; 87086; 99283; 99284

== ENCOUNTER 2018-09-09 21:47 | Emergency (ER) | payer OTHER ==
[2018-09-09] MEDS ORDERED: HYDROcod/ACETAM 5/325 MG TABLET PO STA (22:27)
[2018-09-09] MEDS ORDERED: LORazepam 1 MG TABLET PO STA (22:27)
--- NOTE | 2018-09-10 02:39 | Ultrasound Report ---
Reason: pelvic pain; vag bleeding; 3 wk s/p tubal preg Procedure Date: 09/10/2018 Accession Number: [id number] / [id number] Procedure: US - Pelvic w/Transvag+Doppler Ltd CPT Code: FULL RESULT: EXAM: PELVIC ULTRASOUND CLINICAL HISTORY: Pelvic pain, vaginal bleeding, known ectopic , status post methotrexate treatment. HCG levels are decreasing. Now with postcoital severe right lower quadrant pain. COMPARISON: OB FIRST TRIMESTER 08/22/2018 7:45 AM, OB FIRST TRIMESTER 08/21/2018 2:41 PM TECHNIQUE: Real-time transabdominal imaging performed to identify the uterus and adnexa and as an overview of other pelvic structures, followed by transvaginal imaging for better assessment of the endometrium and adnexa, with static image documentation. Wolfe scale and color flow images are acquired. FINDINGS: Uterus: Uterus measures 8.6 x 3.6 x 3.9 cm. It is anteverted retroflexed. Masses: None. Endometrium: Endometrium measures 9.8 mm in thickness without suspicious vascularity. Cervix: Unremarkable. Right Ovary: Right ovary is normal in appearance measuring 3.7 x 2.8 x 2.5 cm. There is normal blood flow. Small internal follicle measuring 17 mm is noted. Right adnexa: Small echogenic abnormality within the right adnexa, adjacent to or within the right ovary along the broad ligament is noted. This measures 1.6 x 1.6 x 1.3 cm. Surrounding rim vascularity is noted. Additionally within the broad ligament is a heterogeneous echogenic abnormality measuring 3.1 x 3.2 x 2.6 cm with equivocal internal vascularity. Left Ovary: Left ovary measured 3.1 x 3.2 x 1.7 cm. There is a 9 mm follicle. Adnexa are unremarkable. Free Fluid: None. Other: None. IMPRESSION: 1. The right adnexal/ovarian ectopic is again seen, now measuring 1.6 x 1.3 x 1.6 cm, previously 1.3 x 1.3 x 1.2 cm. Peripheral vascularity is seen as before. 2. New since the prior study is an additional heterogeneous abnormality within the broad ligament, abutting the ectopic . This abnormality measures 3.1 x 3.2 x 2.6 cm, probably a blood clot. 3. Normal appearance of the left ovary as before. RADIA
--- NOTE | 2018-09-10 03:06 | ED Physician Documentation ---
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 She is to half weeks post methotrexate administration for ectopic with spontaneous demise and falling quantitative levels. She has had follow-up visit and blood test with her primary care showing a steadily decreasing hCG quantitative. She states her last one was in the office earlier today and was 147.) Timing - duration: Minutes Timing - details: Abrupt onset, Still present (diminishing bleeding enroute, but still with RLQ pain.) Associated symptoms: Vaginal bleeding (abruptly today, bright red.). 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), P (1), Miscarriage(s) (1), Prior ectopic (just 2-1/2 weeks ago) Review of Systems Constitutional: denies: Fever, Chills, Myalgias Nose: denies: Rhinorrhea / runny nose, Congestion Throat: denies: Sore throat Respiratory: denies: Cough GI: denies: Nausea, Vomiting, Diarrhea PD PAST MEDICAL HISTORY - Past Medical History Past Medical History: No Cardiovascular: None Respiratory: None Neuro: None Endocrine/Autoimmune: None GI: None SEWER PIPE CLEANER: None : None HEENT: None Psych: None Musculoskeletal: None Derm: None - Past Surgical History Past Surgical History: No - Present Medications Home Medications: Ambulatory Orders Medication Instructions Recorded Confirmed Lab Draw 1 unit TD ONCE #1 08/21/18 Hydrocodone/Acetaminophen [[place] 1 each PO Q6H PRN #15 tablet 08/22/18 5-325 Tablet] Ondansetron Odt [Zofran] 4 mg TL Q6H PRN #10 tablet 08/22/18 Hydrocodone/Acetaminophen [[place] 1 each PO Q6H PRN #15 tablet 09/10/18 5-325 Tablet] Naproxen 375 mg PO BID #20 tablet 09/10/18 - Allergies Allergies/Adverse Reactions: Allergies Allergy/AdvReac Type Severity Reaction Status Date / Time No Known Drug Allergies Allergy Verified 09/09/18 21:57 - Social History Does the pt smoke?: Yes Smoking Status: Current every day smoker Does the pt drink ETOH?: Yes Does the pt have substance abuse?: Yes Substance Use and Type: Marijuana - Immunizations Immunizations are current?: No Immunizations: TDAP >10years/unknown - POLST Patient has POLST: No PD ED PE NORMAL - Vitals Vital signs reviewed: Yes - General General: Alert and oriented X 3, Well developed/nourished, Other (appears anxious and also in pain) - Cardiac Cardiac: No murmur. No: RRR (tachycardic but regular) - Respiratory Respiratory: Clear bilaterally - Abdomen Abdomen: Normal bowel sounds, Soft, Non distended, No organomegaly, Other (moderate tenderness without guarding nor percussion/rebound tenderness in RLQ are. ) - Female Female : Deferred - Back Back: No CVA TTP Results - Vitals Vitals: Vital Signs - 24 hr 09/09/18 09/10/18 09/10/18 21:53 00:30 00:34 Temperature 36.2 C L 36.9 C Heart Rate 129 H 109 H 115 H Respiratory 16 16 18 Rate Blood Pressure 143/102 H 144/83 H 141/96 H O2 Saturation 99 100 100 09/10/18 03:33 Temperature 36.8 C Heart Rate 99 Respiratory 16 Rate Blood Pressure 134/86 H O2 Saturation 99 Oxygen O2 Source Room air - Rads (name of study) pelvic U/S Radiology: Prelim report reviewed, See rad report (Previous ectopic masses still noted in the right tube with a slight increase in size from 1.3 x 1.2 x 1.3 to now 1.6 x 1.3 x 1.6 cm. Adjacent to that is a rounded 3 x 2 x 1- 1/2 cm fluid structure consistent with blood clot in the tube. No free fluid is seen.) PD MEDICAL DECISION MAKING - ED course Complexity details: reviewed results (Persistent mass in the right tube status post tubal with methotrexate. This may still need more time for resorption however he is expected to be decreasing some. There is also new fluid structure adjacent to that which along with the vaginal bleeding today, would be likely to be a blood clot in the tube.), re-evaluated patient (Prolonged ER course due to sound needing to be called in and some delay in that process. Then getting the ultrasound and the results. Subsequently we did get all those and I talked back with the patient who is feeling comfortable at this time with the medicines we gave her.), considered differential (Consider the possibility of just first. Subsequent to her miscarriage with the vaginal bleeding. However she is still in the timeframe to be concerned for tubal injury and inflammation subsequent to the miscarriage and the methotrexate.), d/w patient, d/w pre owned sales consultant (Dr. Patel, regional guide SUPERVISOR DOG LICENSE OFFICER, Who said patient should be okay at this time. There would be expected inflammation in the tube from the resorbing and the methotrexate. She should have pelvic rest with no intercourse. Stay well-hydrated. Follow-up with gynecology tomorrow (Thursday).) Departure - Departure Disposition: Home, Self Care Clinical Impression: Aborted ectopic , Vaginal bleeding Condition: Stable Record reviewed to determine appropriate education?: Yes Follow-Up: MAYKEL ANGEL MD, PHD [Physician No Access] - Prescriptions: Hydrocodone/Acetaminophen [[place] 5-325 Tablet] 1 each PO Q6H PRN #15 tablet PRN Reason: Pain Naproxen 375 mg PO BID #20 tablet Comments: Stay well-hydrated. Pelvic rest without intercourse or vigorous physical activity. Naproxen anti-inflammatory twice daily. Add Tylenol or hydrocodone for pain. I talked with her strand forming machine operator on-call and he recommends follow-up with SUPERVISOR DOG LICENSE OFFICER within 1 to 2 days, preferably Thursday. [place] with [place]cology here in [place]. Return if increasing pain, consistent bleeding, fevers, vomiting, other concerns. Discharge Date/Time: 09/10/18 03:33
[2018-09-10] MEDS ORDERED: HYDROcod/ACET 5/325 Prepack 4 PO STA (03:21)
[2018-09-10 03:34] VITALS: BP 134/86
== END 2018-09-10 03:33 | disposition home or self-care (01) ==
LOC: ED 21:47
DX: O08.1 Delayed or excessive hemorrhage following ectopic and molar pregnancy (principal); F17.200 Nicotine dependence, unspecified, uncomplicated
CPT/HCPCS: 76830; 76856; 93976; 99284; A9270; J8499

== ENCOUNTER 2018-09-20 00:31 | Emergency (ER) | payer OTHER ==
--- NOTE | 2018-09-20 01:05 | ED Physician Documentation ---
PD HPI FEMALE - Stated complaint Stated Complaint: ABD PAIN - Chief complaint Chief Complaint: Abd Pain - History obtained from History obtained from: Patient - History of Present Illness Timing - onset: How many hours ago (2) Timing - details: Still present Associated symptoms: Pelvic pain, Vaginal bleeding Contributing factors: Other (ectopic ) Similar symptoms before: Diagnosis (Ectopic diagnosed one month ago, undergoing treatment with methotrexate.) Recently seen: Clinic (3 days ago.) - Additional information Additional information: The patient is a 27-year-old female who presents with right adnexal pain that started about 2 hours prior to arrival. She has a history of right tubal that was diagnosed nearly 1 month ago on 08/21/2018. She has been undergoing methotrexate treatment. Her last hCG, 3 days ago, was 121, which was not as low as expected. She received a repeat treatment of methotrexate 2 days ago. She was told at that time that if she developed abdominal pain she should seek medical attention. Her vaginal bleeding had stopped prior to the methotrexate 2 days ago. It resumed today with scant amount of bleeding. She had one episode of vomiting after the methotrexate treatment, but none today. She denies fever or dysuria. Review of Systems Constitutional: denies: Fever Nose: denies: Congestion Throat: denies: Sore throat Cardiac: denies: Chest pain / pressure Respiratory: denies: Dyspnea, Cough GI: reports: Abdominal Pain (right lower quadrant/adnexal). denies: Vomiting, Diarrhea : reports: Vaginal bleeding. denies: Dysuria Skin: denies: Rash Musculoskeletal: denies: Back pain Neurologic: denies: Headache PD PAST MEDICAL HISTORY - Past Medical History Past Medical History: Yes Cardiovascular: None Respiratory: None Neuro: None Endocrine/Autoimmune: None GI: None MANAGER CAR: Ectopic : None HEENT: None Psych: None Musculoskeletal: None Derm: None - Past Surgical History Past Surgical History: Yes /MANAGER CAR: section - Present Medications Home Medications: Ambulatory Orders Medication Instructions Recorded Confirmed Lab Draw 1 unit TD ONCE #1 08/21/18 09/17/18 Hydrocodone/Acetaminophen [[place] 1 each PO Q6H PRN #15 tablet 08/22/18 09/17/18 5-325 Tablet] Ondansetron Odt [Zofran] 4 mg TL Q6H PRN #10 tablet 08/22/18 09/17/18 Hydrocodone/Acetaminophen [[place] 1 each PO Q6H PRN #15 tablet 09/10/18 09/17/18 5-325 Tablet] Naproxen 375 mg PO BID #20 tablet 09/10/18 09/17/18 Hydrocodone/Acetaminophen 1 - 2 each PO Q6H PRN #14 tablet 09/20/18 [Hydrocodon-Acetaminophen 5-325] - Allergies Allergies/Adverse Reactions: Allergies Allergy/AdvReac Type Severity Reaction Status Date / Time No Known Drug Allergies Allergy Verified 09/20/18 00:39 - Social History Does the pt smoke?: Yes Smoking Status: Current every day smoker Does the pt drink ETOH?: Yes Does the pt have substance abuse?: Yes Substance Use and Type: Marijuana - Immunizations Immunizations are current?: No Immunizations: TDAP >10years/unknown - POLST Patient has POLST: No PD ED PE NORMAL - Vitals Vital signs reviewed: Yes (borderline hypertension initially.) - General General: Alert and oriented X 3, Well developed/nourished - HEENT HEENT: Atraumatic, Pharynx benign - Neck Neck: No adenopathy - Cardiac Cardiac: RRR - Respiratory Respiratory: No respiratory distress, Clear bilaterally - Abdomen Abdomen: Soft, Non tender - Female Female : Other (Mild tenderness to palpation in the right adnexa.) - Back Back: No CVA TTP - Derm Derm: No rash - Extremities Extremities: No edema, No calf tenderness / cord - Neuro Neuro: Alert and oriented X 3, No motor deficit, Normal speech Results - Vitals Vitals: Vital Signs - 24 hr 09/20/18 09/20/18 00:35 03:27 Temperature 36.5 C Heart Rate 110 H 87 Respiratory 16 20 Rate Blood Pressure 130/91 H 122/83 H O2 Saturation 100 98 Oxygen O2 Source Room air - Labs Labs: Laboratory Tests 09/20/18 09/20/18 09/20/18 01:07 01:07 01:40 WBC 10.3 RBC 4.56 Hgb 13.7 Hct 41.9 MCV 91.9 MCH 30.0 MCHC 32.7 RDW 13.3 Plt Count 227 MPV 11.6 H Neut # (Auto) 8.0 H Lymph # (Auto) 2.0 Mcminn # (Auto) 0.2 Eos # (Auto) 0.0 Baso # (Auto) 0.0 Absolute Nucleated RBC 0.00 Nucleated RBC % 0.0 HCG, Quant 103.69 Urine Color DARK YELLOW Urine Clarity CLEAR Urine pH 5.5 Ur Specific [place] >=1.030 H Urine Protein TRACE Urine Glucose (UA) NEGATIVE Urine Ketones 40 H Urine Occult Blood LARGE H Urine Nitrite NEGATIVE Urine Bilirubin NEGATIVE Urine Urobilinogen 1 (NORMAL) Ur Leukocyte Esterase NEGATIVE Urine RBC 11-25 H Urine WBC 0-3 Ur Squamous Epith Cells FEW Squamous Urine Bacteria Rare Urine Mucus Moderate Strands Ur Microscopic Review INDICATED Urine Culture Comments NOT INDICATED - Rads (name of study) Pelvic U/S Radiology: Prelim report reviewed, EMP read contemporaneously, See rad report (Increasing size of right adnexal lesion, likely representing the ectopic gestation. Now measuring 2.3 cm (previously 1.6 cm). The previously noted additional lesion within the broad ligament is again seen, now measuring 3.8 cm (previous 3.2 cm, again likely representing blood clot.) PD MEDICAL DECISION MAKING - ED course Complexity details: reviewed old records, reviewed results, re-evaluated patient, considered differential, d/w patient, d/w telecom sales consultant ED course: The patient's presentation is significant for right adnexal pain associated with ectopic for which she has been undergoing treatment with methotrexate. Her last dose of methotrexate was 2 days ago. Ultrasound at this time reveals increased size of the ectopic at 2.3 cm compared to ultrasound of 09/10/18 when it was 1.6 cm. She is hemodynamically stable, with hemoglobin of 13.7. Her hCG is 103 at this time, compared to 121 3 days ago. I discussed her presentation with Dr. Patel, on-call for gynecology. He advises that the patient does not necessarily require emergent surgical intervention given that she is hemodynamically stable. The methotrexate still has time to be effective, and it is clinically permissible for her to follow up urgently with her organizational research consultant, Dr. Prieto at the [facility]. Treatment in the emergency department included administration of Vicodin one tablet orally. She is being discharged with prescription for Vicodin, 10 tablets. I discussed with her the results of her ultrasound, the importance of urgent gynecologic follow-up, as well as potentially worrisome signs or symptoms that should prompt reevaluation in the emergency department. A DVD copy of her ultrasound was provided to her to take to her follow-up appointment. Departure - Departure Disposition: 01 Home, Self Care Clinical Impression: Ectopic Qualifiers: Location of ectopic : tubal Intrauterine status: without intrauterine Laterality: right Qualified Code(s): O00.101 - Right tubal without intrauterine Condition: Stable Instructions: ED Preg Ectopic Methotrexate Tx Follow-Up: GENE PRIETO MD [Primary Care Provider] - Prescriptions: Hydrocodone/Acetaminophen [Hydrocodon-Acetaminophen 5-325] 1 - 2 each PO Q6H PRN #14 tablet PRN Reason: pain Comments: You can use Vicodin as prescribed if needed for pain. Call your organizational research consultant today for urgent follow-up. Take a copy of the ultrasound with you to follow-up appointment. Return to the emergency department if you develop increasing pain, lightheadedness, or otherwise worsening symptoms. Discharge Date/Time: 09/20/18 03:29
[2018-09-20 02:18] LABS: GLUCOSE, URINE (UA) NEGATIVE (NEGATIVE); KETONES,URINE (UA) 40 mg/dL (NEGATIVE); LEUKOCYTE ESTERASE, URINE NEGATIVE (NEGATIVE); NITRITE,URINE NEGATIVE (NEGATIVE); OCCULT BLOOD,URINE LARGE (NEGATIVE); PH,URINE 5.5 PH (5.0-7.5); PROTEIN,URINE TRACE mg/dL (NEGATIVE); UROBILINOGEN,URINE 1 (NORMAL) E.U./dL (NORMAL)
[2018-09-20 02:27] LABS: BILIRUBIN,URINE NEGATIVE (NEGATIVE); CLARITY,URINE CLEAR (CLEAR); ICTOTEST,URINE NEGATIVE
[2018-09-20 02:28] LABS: BACTERIA,URINE Rare /HPF (None Seen); MUCUS,URINE Moderate Strands; SQUAMOUS EPITHELIAL CELL,UR FEW Squamous (<= Few)
--- NOTE | 2018-09-20 02:35 | Ultrasound Report ---
Reason: Increased pain rt. adnxa; reassess tubal Procedure Date: 09/20/2018 Accession Number: [id number] / [id number] Procedure: US - Pelvic w/Transvaginal CPT Code: FULL RESULT: EXAM: PELVIC ULTRASOUND EXAM DATE: 09/20/2018 02:06 AM. CLINICAL HISTORY: Increased pain rt. adnxa; reassess tubal . COMPARISON: PEL NON OB W/TV DOP LTD 09/10/2018 12:51 AM. TECHNIQUE: Realtime transabdominal pelvic scan performed to identify the uterus and adnexa and as an overview of other pelvic structures, followed by transvaginal scan to provide greater detail of the uterus and adnexa, with static image documentation. FINDINGS: Uterus: 8.3 x 4.4 x 3.8 cm, volume 73 cc. Anteverted position. Normal overall size and echotexture. Masses: None. Endometrium: 7 mm. Normal. Cervix: Unremarkable. Right Ovary: 2.9 x 2.5 x 2.3 cm, volume 9 cc. Increasing size of the previously noted complex abnormality in the right adnexa, now measuring 2.3 cm (previously 1.6 cm). The previously noted additional lesion within the broad ligament is again seen, now measuring 3.8 cm (previously 3.2 cm). Left Ovary: 3.5 x 3.3 x 1.7 cm, volume 10 cc. Normal echotexture and blood flow. Free Fluid: Small amount. Other: None. IMPRESSION: Increasing size of right adnexal lesion, likely representing the ectopic gestation. Increasing size of previously noted right broad ligament abnormality, again likely representing blood clot. RADIA The critical result notification system was initiated by Dr. Abimael Vasquez at 02:31 AM on 09/20/2018. The above critical result findings were discussed with Cliff Rodríguez by Dr. Abimael Vasquez at 02:33 AM on 09/20/2018.
[2018-09-20 02:55] LABS: BASOPHILS % (AUTO) 0.3 %; EOSINOPHILS % (AUTO) 0.1 %; HGB - HEMOGLOBIN 13.7 g/dL (12.0-16.0); LYMPHOCYTES % (AUTO) 19.8 %; MEAN CORPUSCULAR HGB CONC 32.7 g/dL (32.0-36.0); MEAN CORPUSCULAR VOLUME 91.9 fL (81.0-99.0); MEAN PLATELET VOLUME 11.6 fL (7.9-10.8); MONOCYTES # (AUTO) 0.2 10^3/uL (0.0-1.0); MONOCYTES % (AUTO) 2.1 %; NEUTROPHILS % (AUTO) 77.3 %; PLT - PLATELET COUNT 227 10^3/uL (130-450); RED BLOOD COUNT 4.56 10^6/uL (4.20-5.40); RED CELL DISTRIBUTION WIDTH 13.3 % (12.0-15.0); WHITE BLOOD COUNT 10.3 x10^3/uL (4.8-10.8)
[2018-09-20] MEDS ORDERED: HYDROcod/ACETAM 5/325 MG TABLET PO STA (03:05)
[2018-09-20 03:28] VITALS: BP 122/83
== END 2018-09-20 03:29 | disposition home or self-care (01) ==
LOC: ED 00:31
DX: O00.101 Right tubal pregnancy without intrauterine pregnancy (principal); F17.200 Nicotine dependence, unspecified, uncomplicated
CPT/HCPCS: 36415; 76830; 76856; 81001; 84702; 85025; 99284; A9270; 81003; 87086